=== PATIENT | male | born 1990 | race Two or more races ===

== ENCOUNTER 2018-11-25 16:29 | Inpatient (IN) | payer OTHER ==
[2018-11-25 22:53] VITALS: BMI 29.6
--- NOTE | 2018-11-26 00:41 | HP ---
CIWA Score - Admission Criteria [facility] Guidelines: Admission for Medically Managed Detox: Requires at least one of the followin. CIWA greater than 12 2. Seizures within the past 24 hours 3. Delirium tremens within the past 24 hours 4. Hallucinations within the past 24 hours 5. Acute intervention needed for co occurring medical disorder 6. Acute intervention needed for co occurring psychiatric disorder 7. Severe withdrawal that cannot be handled at a lower level of care (continued vomiting, continued diarrhea, abnormal vital signs) requiring intravenous medication and/or fluids 8. Admission ROS S - HPI Chief Complaint: Seeking admission to Rehab. Allergies/Adverse Reactions: Allergies Allergy/AdvReac Type Severity Reaction Status Date / Time fish derived Allergy Rash Verified 11/25/18 22:39 acetaminophen [From Vicodin] AdvReac Swelling Verified 11/25/18 22:39 hydrocodone [From Vicodin] AdvReac Swelling Verified 11/25/18 22:39 History of Present Illness: 28 years old male with cocaine, crystal meth. and alcohol dependence is seeking admission to Rehab. Patient was referred from [facility] where he was admitted for the period 11/11/2018 - 11/25/2018. He has medial history of asthma, depression and seizures. He reports suicide attempt at age 13 and denies suicidal ideation at this time. He reports that this is his first admission to inpatient Rehab. admission and first admission to [facility] Exam Limitations: No Limitations - Ebola screening Have you traveled outside of the country in the last 21 days: No (N) Have you had contact with anyone from an Ebola affected area: No Do you have a fever: No - Review of Systems Constitutional: No Symptoms Reported EENT: reports: No Symptoms Reported Respiratory: reports: No Symptoms reported Cardiac: reports: No Symptoms Reported GI: reports: No Symptoms Reported : reports: No Symptoms Reported Musculoskeletal: reports: No Symptoms Reported Integumentary: reports: No Symptoms Reported Neuro: reports: No Symptoms reported Endocrine: reports: No Symptoms Reported Hematology: reports: No Symptoms Reported Psychiatric: reports: No Sypmtoms Reported, Mood/Affect Appropiate, Orientated x3 Other Systems: Reviewed and Negative Patient History - Patient Medical History Hx Anemia: No Hx Asthma: Yes (Albuterol) Hx Chronic Obstructive Pulmonary Disease (COPD): No Hx Cancer: No Hx Cardiac Disorders: No Hx Congestive Heart Failure: No Hx Hypertension: No Hx Hypercholesterolemia: No Hx Pacemaker: No HX Cerebrovascular Accident: No Hx Seizures: Yes (Dilantin) Hx Dementia: No Hx Diabetes: No Hx Gastrointestinal Disorders: No Hx Liver Disease: No Hx Genitourinary Disorders: No Hx Sexually Transmitted Disorders: No Hx Renal Disease (ESRD): No Hx Thyroid Disease: No Hx Human Immunodeficiency Virus (HIV): No (Negative 2019) Hx Hepatitis C: No Hx Depression: Yes (Lexapro) Hx Suicide Attempt: No (Reports suicide attempt at age 13, denies suicidal ideation at this time ) - Patient Surgical History Past Surgical History: No - PPD History Previous Implant?: Yes Documented Results: Negative w/o proof Implanted On Prior [facility] Admission?: No PPD to be Administered?: Yes - Reproductive History Patient is a Female of Child Bearing Age (11 -55 yrs old): No (male) - Smoking Cessation Smoking history: Current every day smoker Have you smoked in the past 12 months: Yes Aproximately how many cigarettes per day: 60 Hx Chewing Tobacco Use: No Initiated information on smoking cessation: Yes 'Breaking Loose' booklet given: 11/26/18 - Substances abused Cocaine Substance route: Inhalation Frequency: 1-2 times per week Amount used: 10 dollars per bag Age of first use: 28 Date of last use: 11/03/18 Crystal meth Substance route: Injection Frequency: Daily Amount used: 60 dollars. Age of first use: 28 Date of last use: 11/09/18 Alcohol Substance route: Oral Frequency: 1-2 times per week Amount used: 2 to 3 beers Age of first use: 23 Date of last use: 11/25/18 Family Disease History - Family Disease History Family Disease History: Heart Disease: Father (CHF - ), CA: Mother ( Breast - ) Admission Physical Exam S - Vital Signs Vital Signs: Vital Signs - 24 hr 11/25/18 22:35 Temperature 98.0 F Pulse Rate 79 Respiratory 16 Rate Blood Pressure 144/78 - Physical General Appearance: Yes: Nourished, Appropriately Dressed HEENTM: Yes: Normal ENT Inspection Respiratory: Yes: Lungs Clear, Normal Breath Sounds, No Respiratory Distress Neck: Yes: Supple Breast: Yes: Breast Exam Deferred Abdominal: Yes: Normal Bowel Sounds Genitourinary: Yes: Within Normal Limits Back: Yes: Normal Inspection Musculoskeletal: Yes: Within Normal Limits Extremities: Yes: Within Normal Limits, Normal Inspection, Normal Range of Motion Neurological: Yes: Alert, Normal Mood/Affect Integumentary: Yes: Warm Lymphatic: Yes: Within Normal Limits - Diagnostic (1) Seizures Current Visit: Yes Status: Chronic (2) Depression Current Visit: Yes Status: Chronic Qualifiers: Depression Type: unspecified Qualified Code(s): F32.9 - Major depressive disorder, single episode, unspecified (3) Asthma Current Visit: Yes Status: Chronic Qualifiers: Asthma complication type: uncomplicated (4) Alcohol dependence Current Visit: Yes Status: Chronic Qualifiers: Substance use status: uncomplicated Qualified Code(s): F10.20 - Alcohol dependence, uncomplicated (5) Cocaine dependence Current Visit: Yes Status: Chronic Qualifiers: Substance use status: uncomplicated Qualified Code(s): F14.20 - Cocaine dependence, uncomplicated (6) Methamphetamine dependence Current Visit: Yes Status: Chronic (7) Nicotine dependence Current Visit: Yes Status: Chronic Qualifiers: Nicotine product type: cigarettes Substance use status: uncomplicated Qualified Code(s): F17.210 - Nicotine dependence, cigarettes, uncomplicated Cleared for Admission S - Detox or Rehab [facility] Level of Care: Observation Bed Claeared for Rehab Admission: Yes Breathalyzer - Breathalyzer Breathalyzer: 0 Urine Drug Screen - Test Device Lot number: [id number] Expiration date: 08/20/20 - Control Is test valid?: Yes - Results Drug screen NEGATIVE: No Urine drug screen results: THC-Marijuana Inpatient Rehab Admission - Rehab Decision to Admit Inpatient rehab admission?: Yes - Initial Determination Are CD services needed?: No Free of communicable disease: Yes Not in need of hospitalization: Yes - Rehab Admission Criteria Previous failed treatment: Yes Poor recovery environment: Yes Comorbidities: Yes Lacks judgement: No Patient is meeting Inpatient Rehab admission criteria:: Yes
[2018-11-26] MEDS ORDERED: P-EPHED 60MG/TRIPROLIDI 2.5MG TABLET PO PRN (00:50)
[2018-11-26] MEDS ORDERED: IBUPROFEN 400 MG TABLET (FP) PO PRN (00:50)
[2018-11-26] MEDS ORDERED: guaiFENesin 200 MG/10 ML 10 ML UNIT-DOSE CUPS PO PRN (00:50)
[2018-11-26] MEDS ORDERED: MAG HYDROX/AL HYDROX/SIMETH 30 ML UNIT-DOSE CUP PO PRN (00:50)
[2018-11-26] MEDS ORDERED: LOPERAMIDE HCL 2 MG CAPSULE PO PRN (00:50)
[2018-11-26] MEDS ORDERED: MENTHOL/PHENOL 1 EACH UD MM PRN (00:50)
[2018-11-26] MEDS ORDERED: MAGNESIUM CITRATE 300 ML BOTTLE PO PRN (00:50)
[2018-11-26] MEDS ORDERED: ACETAMINOPHEN 325 MG TABLET (FP) PO PRN (00:50)
[2018-11-26] MEDS ORDERED: MAGNESIUM HYDROX 2400MG/30ML ORAL SUSPENSION 30 ML CUP PO PRN (00:50)
[2018-11-26] MEDS: PHENYTOIN NA EXTENDED 100 MG CAPSULE (FP) PO SCH ×3 (06:04→21:42)
[2018-11-26] MEDS: NICOTINE 14 MG/24 HOURS TOPICAL PATCH TD SCH (09:50)
[2018-11-26] MEDS: PRENATAL VITAMINS W/ FOLIC ACID TABLET (FP) PO SCH (09:50)
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
[2018-11-26] MEDS ORDERED: ESCITALOPRAM OXALATE 10 MG TABLET (FP) PO SCH (11:45)
[2018-11-26] MEDS ORDERED: ARIPiprazole 10 MG TABLET PO SCH (11:45)
[2018-11-26 11:55] LABS: HEMATOCRIT 43.5 % (35.4-49); MCH 26.4 pg (25.7-33.7); MCHC 32.2 g/dl (32.0-35.9); MEAN CELL VOLUME 82.1 fl (80-96); MEAN PLT VOLUME 8.2 fl (7.5-11.1); PLATELET COUNT 244 K/MM3 (134-434); RBC 5.29 M/mm3 (4.00-5.60); WHITE BLOOD COUNT 3.6 K/mm3 (4.0-10.0)
[2018-11-26 12:12] LABS: ALBUMIN 3.8 g/dl (3.4-5.0); BILIRUBIN,TOTAL 0.2 mg/dL (0.2-1); BLOOD UREA NITROGEN 14.3 mg/dL (7-18); CALCIUM 9.3 mg/dL (8.5-10.1); CREATININE 1.1 mg/dL (0.55-1.3); POTASSIUM 4.1 mmol/L (3.5-5.1); TOT PROT 7.2 g/dl (6.4-8.2)
[2018-11-26 15:43] LABS: PH,URINE 7.5 (5.0-8.0); URINE APPEARANCE Clear; URINE BILIRUBIN Negative (NEGATIVE); URINE COLOR Yellow; URINE GLUCOSE (UA) Negative (NEGATIVE); URINE KETONE Negative (NEGATIVE); URINE LEUK ESTERASE Negative (NEGATIVE); URINE NITRITE Negative (NEGATIVE); URINE PROTEIN Negative (NEGATIVE); URINE UROBILINOGEN 0.2 mg/dL (0.2-1.0)
[2018-11-26] MEDS: MELATONIN 5 MG TABLETS PO PRN (21:42)
[2018-11-26] MEDS: THIAMINE HCL 100 MG TABLET (FP) PO SCH (21:42)
[2018-11-26] MEDS: traZODone HCL 50 MG TABLET (FP) PO SCH (21:42)
[2018-11-26] MEDS ORDERED: traZODone HCL 100 MG TABLET (FP) PO PRN (22:00)
[2018-11-27] MEDS: PHENYTOIN NA EXTENDED 100 MG CAPSULE (FP) PO SCH ×3 (06:24→21:31)
[2018-11-27] MEDS ORDERED: LORazepam 2 MG/ML SDV VIAL ONE (10:47)
[2018-11-27] MEDS: NICOTINE 14 MG/24 HOURS TOPICAL PATCH TD SCH (11:00)
[2018-11-27] MEDS: ESCITALOPRAM OXALATE 20 MG TABLET (FP) PO SCH (11:00)
[2018-11-27] MEDS: PRENATAL VITAMINS W/ FOLIC ACID TABLET (FP) PO SCH (11:00)
[2018-11-27] MEDS: ARIPiprazole 10 MG TABLET PO SCH (11:00)
--- NOTE | 2018-11-27 11:33 | PN ---
[facility] Progress Note Note: Patient referred for smelling copper and feeling weak. As sql report writer arrived on unit, patient is witnessed seated on chair shaking, staff eases patient to the floor without incident, shortly after that patient had a generalized seizure lasting about 30 secs with brief period of unresponsiveness @ 10:45 am. At around 10:51 am he had another activity lasting a few seconds. Patient has seizure disorder and is on Dilantin 100mg TID, he reports his last seizure was 2 weeks ago. PE Laboratory Last Values WBC 3.6 K/mm3 (4.0-10.0) L 11/26/18 08:30 RBC 5.29 M/mm3 (4.00-5.60) 11/26/18 08:30 Hgb 14.0 GM/dL (11.7-16.9) 11/26/18 08:30 Hct 43.5 % (35.4-49) 11/26/18 08:30 MCV 82.1 fl (80-96) 11/26/18 08:30 MCH 26.4 pg (25.7-33.7) 11/26/18 08:30 MCHC 32.2 g/dl (32.0-35.9) 11/26/18 08:30 RDW 15.0 % (11.9-15.9) 11/26/18 08:30 Plt Count 244 K/MM3 (134-434) 11/26/18 08:30 MPV 8.2 fl (7.5-11.1) 11/26/18 08:30 Sodium 140 mmol/L (136-145) 11/26/18 08:30 Potassium 4.1 mmol/L (3.5-5.1) 11/26/18 08:30 Chloride 106 mmol/L (98-107) 11/26/18 08:30 Carbon Dioxide 29 mmol/L (21-32) 11/26/18 08:30 Anion Gap 5 MMOL/L (8-16) L 11/26/18 08:30 BUN 14.3 mg/dL (7-18) 11/26/18 08:30 Creatinine 1.1 mg/dL (0.55-1.3) 11/26/18 08:30 Est GFR (CKD-EPI)AfAm 104.59 11/26/18 08:30 Est GFR (CKD-EPI)NonAf 90.24 09/06/19 08:30 POC Glucometer 79 UNITS (80-120) 11/27/18 10:54 Random Glucose 74 mg/dL (74-106) 11/26/18 08:30 Calcium 9.3 mg/dL (8.5-10.1) 11/26/18 08:30 Total Bilirubin 0.2 mg/dL (0.2-1) 11/26/18 08:30 AST 14 U/L (15-37) L 11/26/18 08:30 ALT 32 U/L (13-61) 11/26/18 08:30 Alkaline Phosphatase 75 U/L (45-117) 11/26/18 08:30 Total Protein 7.2 g/dl (6.4-8.2) 11/26/18 08:30 Albumin 3.8 g/dl (3.4-5.0) 11/26/18 08:30 Urine Color Yellow 11/26/18 11:00 Urine Appearance Clear 11/26/18 11:00 Urine pH 7.5 (5.0-8.0) 11/26/18 11:00 Ur Specific [place] 1.015 (1.010-1.035) 11/26/18 11:00 Urine Protein Negative (NEGATIVE) 11/26/18 11:00 Urine Glucose (UA) Negative (NEGATIVE) 11/26/18 11:00 Urine Ketones Negative (NEGATIVE) 11/26/18 11:00 Urine Blood Negative (NEGATIVE) 11/26/18 11:00 Urine Nitrite Negative (NEGATIVE) 11/26/18 11:00 Urine Bilirubin Negative (NEGATIVE) 11/26/18 11:00 Urine Urobilinogen 0.2 mg/dL (0.2-1.0) 11/26/18 11:00 Ur Leukocyte Esterase Negative (NEGATIVE) 11/26/18 11:00 RPR Titer Nonreactive (NONREACTIVE) 11/26/18 08:30 VS: BP 109/72 HR 97 RR 16 BGM 87mg/dl HEENT: Unremarkable Chest: Lungs clear in [place] CVS: S1S2,RRR Abd:BS x 4, NT,ND Skin: Normal color, cool and clammy Neuro: Awake, alert, responds sluggishly, generalized weakness A/P 28 year old man currently in rehab for alcohol use presents with 2 seizure activities lasting not more than 30 seconds. 1. Ativan 2mg IM X 1 given 2.Transfer to ED for further evaluation Report given to Dr. Nitish Sanchez
[2018-11-27] MEDS ORDERED: ACETAMINOPHEN 325 MG TABLET (FP) PO PRN (14:16)
--- NOTE | 2018-11-27 19:20 | PN ---
[facility] Progress Note Note: Patient returned from ED following evaluation for seizure. Patient was noted to have subtherapeutic DPH level, he was loaded with dilantin 1.5 grams, current dose increased to 200mg every 8hrs. He is received in no apparent distress, at baseline, able to ambulate with no limitations. DPH level to be rechecked on 11/29/18
[2018-11-27] MEDS: traZODone HCL 50 MG TABLET (FP) PO SCH (21:31)
[2018-11-27] MEDS: THIAMINE HCL 100 MG TABLET (FP) PO SCH (21:31)
[2018-11-27] MEDS: MELATONIN 5 MG TABLETS PO PRN (21:32)
[2018-11-28] MEDS: PHENYTOIN NA EXTENDED 100 MG CAPSULE (FP) PO SCH ×3 (06:41→21:38)
[2018-11-28] MEDS: PRENATAL VITAMINS W/ FOLIC ACID TABLET (FP) PO SCH (10:47)
[2018-11-28] MEDS: ESCITALOPRAM OXALATE 20 MG TABLET (FP) PO SCH (10:47)
[2018-11-28] MEDS: ARIPiprazole 10 MG TABLET PO SCH (10:48)
[2018-11-28] MEDS: NICOTINE 14 MG/24 HOURS TOPICAL PATCH TD SCH (10:48)
[2018-11-28] MEDS: MELATONIN 5 MG TABLETS PO PRN (21:38)
[2018-11-28] MEDS: traZODone HCL 50 MG TABLET (FP) PO SCH (21:38)
[2018-11-28] MEDS: THIAMINE HCL 100 MG TABLET (FP) PO SCH (21:38)
[2018-11-29] MEDS: PHENYTOIN NA EXTENDED 100 MG CAPSULE (FP) PO SCH ×3 (06:04→21:37)
[2018-11-29] MEDS: ESCITALOPRAM OXALATE 20 MG TABLET (FP) PO SCH (09:39)
[2018-11-29] MEDS: hydrOXYzine PAMOATE 25 MG CAPSULE (FP) PO PRN (09:39)
[2018-11-29] MEDS: ARIPiprazole 10 MG TABLET PO SCH (09:39)
[2018-11-29] MEDS: NICOTINE POLACRILEX 2 MG GUM BC PRN ×4 (09:40→21:38)
[2018-11-29] MEDS: NICOTINE 14 MG/24 HOURS TOPICAL PATCH TD SCH (09:40)
[2018-11-29] MEDS: PRENATAL VITAMINS W/ FOLIC ACID TABLET (FP) PO SCH (10:47)
[2018-11-29] MEDS: THIAMINE HCL 100 MG TABLET (FP) PO SCH (21:37)
[2018-11-29] MEDS: traZODone HCL 50 MG TABLET (FP) PO SCH (21:37)
[2018-11-29] MEDS: MELATONIN 5 MG TABLETS PO PRN (21:37)
[2018-11-30] MEDS: PHENYTOIN NA EXTENDED 100 MG CAPSULE (FP) PO SCH ×3 (06:53→21:03)
[2018-11-30] MEDS: NICOTINE POLACRILEX 2 MG GUM BC PRN ×5 (06:54→21:04)
[2018-11-30] MEDS: ARIPiprazole 10 MG TABLET PO SCH (10:38)
[2018-11-30] MEDS: ESCITALOPRAM OXALATE 20 MG TABLET (FP) PO SCH (10:38)
[2018-11-30] MEDS: NICOTINE 14 MG/24 HOURS TOPICAL PATCH TD SCH (10:38)
[2018-11-30] MEDS: PRENATAL VITAMINS W/ FOLIC ACID TABLET (FP) PO SCH (10:38)
[2018-11-30] MEDS: hydrOXYzine PAMOATE 25 MG CAPSULE (FP) PO PRN ×2 (10:39→20:06)
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
[2018-11-30] MEDS: traZODone HCL 50 MG TABLET (FP) PO SCH (21:03)
[2018-11-30] MEDS: THIAMINE HCL 100 MG TABLET (FP) PO SCH (21:03)
[2018-11-30] MEDS: MELATONIN 5 MG TABLETS PO PRN (21:04)
[2018-12-01] MEDS: PHENYTOIN NA EXTENDED 100 MG CAPSULE (FP) PO SCH ×3 (06:01→21:03)
[2018-12-01] MEDS: ARIPiprazole 10 MG TABLET PO SCH (09:57)
[2018-12-01] MEDS: PRENATAL VITAMINS W/ FOLIC ACID TABLET (FP) PO SCH (09:57)
[2018-12-01] MEDS: ESCITALOPRAM OXALATE 20 MG TABLET (FP) PO SCH (09:57)
[2018-12-01] MEDS: NICOTINE 14 MG/24 HOURS TOPICAL PATCH TD SCH (09:58)
[2018-12-01] MEDS: hydrOXYzine PAMOATE 25 MG CAPSULE (FP) PO PRN ×2 (09:59→13:31)
[2018-12-01] MEDS: NICOTINE POLACRILEX 2 MG GUM BC PRN ×4 (10:01→21:03)
[2018-12-01] MEDS: THIAMINE HCL 100 MG TABLET (FP) PO SCH (21:03)
[2018-12-01] MEDS: traZODone HCL 50 MG TABLET (FP) PO SCH (21:03)
[2018-12-01] MEDS: MELATONIN 5 MG TABLETS PO PRN (21:03)
[2018-12-02] MEDS: PHENYTOIN NA EXTENDED 100 MG CAPSULE (FP) PO SCH ×3 (06:49→21:50)
[2018-12-02] MEDS: NICOTINE POLACRILEX 2 MG GUM BC PRN ×4 (06:50→16:14)
[2018-12-02] MEDS: ARIPiprazole 10 MG TABLET PO SCH (09:53)
[2018-12-02] MEDS: ESCITALOPRAM OXALATE 20 MG TABLET (FP) PO SCH (09:53)
[2018-12-02] MEDS: PRENATAL VITAMINS W/ FOLIC ACID TABLET (FP) PO SCH (09:53)
[2018-12-02] MEDS: NICOTINE 14 MG/24 HOURS TOPICAL PATCH TD SCH (09:53)
[2018-12-02] MEDS: hydrOXYzine PAMOATE 25 MG CAPSULE (FP) PO PRN (15:00)
[2018-12-02] MEDS: THIAMINE HCL 100 MG TABLET (FP) PO SCH (21:50)
[2018-12-02] MEDS: traZODone HCL 50 MG TABLET (FP) PO SCH (21:50)
[2018-12-02] MEDS: MELATONIN 5 MG TABLETS PO PRN (21:50)
[2018-12-03] MEDS: PHENYTOIN NA EXTENDED 100 MG CAPSULE (FP) PO SCH ×3 (06:40→21:07)
[2018-12-03] MEDS: NICOTINE POLACRILEX 2 MG GUM BC PRN ×4 (06:41→21:08)
[2018-12-03] MEDS: PRENATAL VITAMINS W/ FOLIC ACID TABLET (FP) PO SCH (09:46)
[2018-12-03] MEDS: ARIPiprazole 10 MG TABLET PO SCH (09:46)
[2018-12-03] MEDS: ESCITALOPRAM OXALATE 20 MG TABLET (FP) PO SCH (09:46)
[2018-12-03] MEDS: NICOTINE 14 MG/24 HOURS TOPICAL PATCH TD SCH (09:47)
[2018-12-03] MEDS: hydrOXYzine PAMOATE 25 MG CAPSULE (FP) PO PRN (12:57)
[2018-12-03] MEDS: traZODone HCL 50 MG TABLET (FP) PO SCH (21:07)
[2018-12-03] MEDS: THIAMINE HCL 100 MG TABLET (FP) PO SCH (21:07)
[2018-12-04] MEDS: PHENYTOIN NA EXTENDED 100 MG CAPSULE (FP) PO SCH ×3 (06:13→21:14)
[2018-12-04] MEDS: NICOTINE POLACRILEX 2 MG GUM BC PRN ×3 (06:14→14:22)
[2018-12-04] MEDS: ARIPiprazole 10 MG TABLET PO SCH (09:34)
[2018-12-04] MEDS: ESCITALOPRAM OXALATE 20 MG TABLET (FP) PO SCH (09:34)
[2018-12-04] MEDS: NICOTINE 14 MG/24 HOURS TOPICAL PATCH TD SCH (09:34)
[2018-12-04] MEDS: PRENATAL VITAMINS W/ FOLIC ACID TABLET (FP) PO SCH (09:34)
[2018-12-04] MEDS: hydrOXYzine PAMOATE 25 MG CAPSULE (FP) PO PRN ×2 (10:51→20:03)
[2018-12-04] MEDS: MELATONIN 5 MG TABLETS PO PRN (21:14)
[2018-12-04] MEDS: traZODone HCL 50 MG TABLET (FP) PO SCH (21:14)
[2018-12-04] MEDS: THIAMINE HCL 100 MG TABLET (FP) PO SCH (21:14)
[2018-12-05] MEDS: PHENYTOIN NA EXTENDED 100 MG CAPSULE (FP) PO SCH ×2 (06:19→15:19)
[2018-12-05] MEDS: NICOTINE POLACRILEX 2 MG GUM BC PRN ×2 (06:21→09:39)
[2018-12-05] MEDS: ARIPiprazole 10 MG TABLET PO SCH (09:37)
[2018-12-05] MEDS: PRENATAL VITAMINS W/ FOLIC ACID TABLET (FP) PO SCH (09:37)
[2018-12-05] MEDS: ESCITALOPRAM OXALATE 20 MG TABLET (FP) PO SCH (09:37)
[2018-12-05] MEDS: NICOTINE 14 MG/24 HOURS TOPICAL PATCH TD SCH (09:37)
[2018-12-05] MEDS: hydrOXYzine PAMOATE 25 MG CAPSULE (FP) PO PRN (09:39)
[2018-12-05 15:02] VITALS: BP 126/74; PULSE 86; TEMP 98.3
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
== END 2018-12-05 15:40 | disposition home or self-care (01) | DRG 772 ==
LOC: YASAS 16:29 → Y5N 11-26 01:16
PROVIDERS: ADMIT Neuromusculoskeletal Medicine & OMM; ATTEND Neuromusculoskeletal Medicine & OMM
PROC: HZ42ZZZ Group Counseling for Substance Abuse Treatment, Cognitive-Behavioral (ICD-10-PCS; principal; 2018-11-26)
DX: F10.230 Alcohol dependence with withdrawal, uncomplicated (principal); F15.20 Other stimulant dependence, uncomplicated; F14.20 Cocaine dependence, uncomplicated; F17.210 Nicotine dependence, cigarettes, uncomplicated; F43.23 Adjustment disorder with mixed anxiety and depressed mood; F19.24 Other psychoactive substance dependence with psychoactive substance-induced mood disorder; F25.1 Schizoaffective disorder, depressive type; F39 Unspecified mood [affective] disorder; J45.909 Unspecified asthma, uncomplicated; G40.909 Epilepsy, unspecified, not intractable, without status epilepticus; Z88.6 Allergy status to analgesic agent; Z63.4 Disappearance and death of family member; Z91.013 Allergy to seafood
CPT/HCPCS: 36415; 80053; 80185; 81003; 82962; 85027; 86480; 86593

== ENCOUNTER 2018-11-27 11:31 | Emergency (ER) | payer OTHER ==
[2018-11-27 11:44] VITALS: BMI 29.6
--- NOTE | 2018-11-27 12:23 | PDOC ---
History of Present Illness - General Chief Complaint: Seizure Stated Complaint: SEIZURE Time Seen by Provider: 11/27/18 11:51 - History of Present Illness Initial Comments: Vladimir Kohler is a 28yo man with a PMH of polysubstance abuse (cocaine, meth, alcohol) who presents from [facility] after two witnessed seiaures today. He was seated and did not fall. He states that he has had tonic-clonic seizures since a head injury in 2008. He takes dilantin for his seizures. Per report, both seizures were under 1 minute and occurred about 5 minutes apart without return to baseline. However, he reports that his dose was recently increased to 200mg TID from 100mg during his hospitalization at [facility]. He reports that he has only been receiving 100mg doses at [facility]. Past History - Past Medical History Allergies/Adverse Reactions: Allergies Allergy/AdvReac Type Severity Reaction Status Date / Time fish derived Allergy Rash Verified 11/27/18 11:38 acetaminophen [From Vicodin] AdvReac Swelling Verified 11/27/18 11:38 hydrocodone [From Vicodin] AdvReac Swelling Verified 11/27/18 11:38 Home Medications: Ambulatory Orders Aripiprazole [Abilify] 10 mg IM MONTHLY 11/25/18 Escitalopram Oxalate [Lexapro -] 20 mg PO DAILY 11/25/18 Phenytoin Na Extended [Dilantin -] 100 mg PO TID 11/25/18 traZODone HCL [Trazodone HCl] 50 mg PO DAILY 11/27/18 Anemia: No Asthma: Yes (Albuterol) Cancer: No Cardiac Disorders: No CVA: No COPD: No CHF: No Dementia: No Diabetes: No GI Disorders: No Disorders: No HTN: No Hypercholesterolemia: No Liver Disease: No Seizures: Yes (Dilantin) Thyroid Disease: No - Surgical History Abdominal Surgery: No Appendectomy: No Cardiac Surgery: No Cholecystectomy: No Lung Surgery: No Neurologic Surgery: No Orthopedic Surgery: No - Reproductive History Testicular Surgery: No - Suicide/Smoking/Psychosocial Hx Smoking History: Unknown if ever smoked Have you smoked in the past 12 months: Yes Number of Cigarettes Smoked Daily: 60 'Breaking Loose' booklet given: 11/26/18 Hx Alcohol Use: Yes Drug/Substance Use Hx: Yes Review of Systems - Review of Systems Comments:: General: No fevers, no chills, no weight or appetite change, no malaise HEENT: No changes in vision, no changes in hearing, no congestion, no sore throat CV: No chest pain, no palpitations, no LE edema Pulm: No SOB, no cough, no wheezing GI: No nausea or vomiting, no change in bowel habits, no melena : No frequency, no urgency, no dysuria Musc: No back pain, no joint swelling, no recent injury Skin: No rash, no lesions, no erythema Endo: No excessive thirst, no heat/cold intolerance Heme: No unusual bruising or bleeding, no swollen glands Neuro: No syncope, no numbness/tingling, no focal weakness. See HPI Vasc: No claudication Psych: No recent change in mood, no SI or HI *Physical Exam - Vital Signs Last Vital Signs Temp Pulse Resp BP Pulse Ox 98.5 F 78 18 126/66 97 11/27/18 11:38 11/27/18 11:38 11/27/18 11:38 11/27/18 11:38 11/27/18 11:38 - Physical Exam Comments: General: Comfortable, no acute distress HEENT: Atraumatic, PERRL, EOMI, MMM, voice normal, normal neck ROM Cards: RRR, no murmur appreciated Pulm: Comfortable on room air, clear to auscultation bilaterally Abd: Soft, nontender, nondistended Ext: Atraumatic. No LE edema. ROM intact. WWP Skin: Normal color, no rashes or lesions Neuro: A&Ox3, CN grossly intact, normal speech, motor/sensory grossly intact and symmetric Psych: Mood appropriate to situation ED Treatment Course - LABORATORY CBC & Chemistry Diagram: 11/27/18 13:20 11/27/18 13:20 Medical Decision Making - Medical Decision Making 11/27/18 12:23 Vladimir Kohler is a 28yo man with a PMH of polysubstance abuse (cocaine, meth, alcohol) who presents from [facility] rehab after two brief witnessed seizures today. - Per report, episode today sounds like patient's baseline - CBC, CMP to evaluate for acute abnormalities - Dilantin level 11/27/18 14:54 - Phenytoin subtherapeutic - Will give loading dose fosphenytoin - D/c back to rehab following meds Discussed with Dr Isabell Chowdary PGY2 *DC/Admit/Observation/Transfer Diagnosis at time of Disposition: Seizures, Subtherapeutic serum dilantin level - Discharge Dispostion Disposition: HOME Condition at time of disposition: Stable Decision to Admit order: No - Referrals - Patient Instructions Printed Discharge Instructions: DI for Seizure Disorder -- Adult Additional Instructions: Discharge Instructions: You were seen in the emergency department for a seizure. Your dilantin levels were found to be low. You were given an IV dose of dilantin while in the ED to raise your levels. Please check with your neurologist to verify the correct dose of dilantin. You reported that your dose was recently increased to 200mg every 8 hours. Seek immediate care for any additional seizures, fall, head injury, or other emergency. - Post Discharge Activity
--- NOTE | 2018-11-27 12:26 | PDOC ---
Attending Attestation - Resident Resident Name: Gloria Chowdary - ED Attending Attestation I have performed the following: I have examined & evaluated the patient, The case was reviewed & discussed with the resident, I agree w/resident's findings & plan, Exceptions are as noted - HPI HPI: 11/27/18 13:00 28y M hx of seizrues, cocaine abuse sp detox, currently at rehab presents with 2 episodes of tonic clonic,w itnessed seizures whiel at [facility] - the pt states he was doing well otherwise, last seizure approx 2 weeks ago, went to [facility] and had his dilantin increased from 100mgTID to 200mg BID, but has been receiving the 100mg dosage at [facility]. Pt skyler any headache, n/v, vision changes, neck pain, numbenss/tingling/weakness. documentation from [facility] shows no head injury. - Physicial Exam PE: 11/27/18 13:03 GENERAL: The patient is awake, alert, and fully oriented, Nontoxic - in no acute distress. HEAD: Normocephalic, atraumatic. EYES: extraocular movements intact, sclera anicteric, conjunctiva clear. ENT: Normal voice, Moist mucous membranes. NECK: Normal range of motion, supple LUNGS: Breath sounds equal, clear to auscultation bilaterally. No wheezes, no rhonchi, no rales. HEART: Regular rate and rhythm, normal S1 and S2 without murmur, rub or gallop. ABDOMEN: Soft, nontender, No guarding, no rebound. No CVA tenderness EXTREMITIES: Normal range of motion, no edema. NEUROLOGICAL: No facial assymetry, Normal speech, moving all 4 extremities spontaneously and symmetricaly PSYCH: Normal mood, normal affect. SKIN: Warm, Dry, normal turgor, - Medical Decision Making 11/27/18 13:03 suspect subtherapeutic dilantin currently at baseline mental status will ck dilantin level 11/27/18 14:47 phenytoin subtherapeutic will load with 15mg/kg and dc back to [facility]
[2018-11-27 13:39] LABS: BASO % 0.7 % (0-2.0); EOS % 4.4 % (0-4.5); HEMATOCRIT 47.6 % (35.4-49); HEMOGLOBIN 15.4 GM/dL (11.7-16.9); LYMPH % 41.9 % (8-40); MCH 26.8 pg (25.7-33.7); MCHC 32.3 g/dl (32.0-35.9); MEAN CELL VOLUME 83.1 fl (80-96); MEAN PLT VOLUME 7.7 fl (7.5-11.1); MONO % 5.6 % (3.8-10.2); NEUT % 47.4 % (42.8-82.8); PLATELET COUNT 241 K/MM3 (134-434); RBC 5.73 M/mm3 (4.00-5.60); RDW 14.9 % (11.9-15.9); WHITE BLOOD COUNT 3.2 K/mm3 (4.0-10.0)
[2018-11-27 14:04] LABS: ALBUMIN 3.9 g/dl (3.4-5.0); BILIRUBIN,TOTAL 0.2 mg/dL (0.2-1); BLOOD UREA NITROGEN 14.7 mg/dL (7-18); CALCIUM 9.1 mg/dL (8.5-10.1); CREATININE 1.2 mg/dL (0.55-1.3); POTASSIUM 4.4 mmol/L (3.5-5.1); TOT PROT 7.5 g/dl (6.4-8.2)
[2018-11-27] MEDS ORDERED: FOSPHENYTOIN SODIUM 1,500 MG in SODIUM CHLORIDE 100 ML IVPB ONE (14:44)
[2018-11-27 18:48] VITALS: BP 128/68; PULSE 73; TEMP 98.3
== END 2018-11-27 18:52 | disposition home or self-care (01) ==
LOC: JER 11:31
DX: G40.909 Epilepsy, unspecified, not intractable, without status epilepticus (principal); T42.3X6A Underdosing of barbiturates, initial encounter; Y92.238 Other place in hospital as the place of occurrence of the external cause; F19.10 Other psychoactive substance abuse, uncomplicated
CPT/HCPCS: 36415; 80053; 80185; 83735; 85025; 99283-25